=== PATIENT | female | born 1985 | race Caucasian/White ===

== ENCOUNTER 2018-12-21 17:17 | Emergency (ER) | payer BC, MEDICAID, OTHER ==
[~2018-12-21] VITALS: Ht 162.6 cm; Wt 79.2 kg
[2018-12-21 17:58] VITALS: BP 167/106
[2018-12-21] MEDS ORDERED: KETOROLAC 30 MG/1 ML ONE (18:44)
--- NOTE | 2018-12-21 18:51 | NUR ---
Discharge instructions discussed with patient including when to return to emergency department, patient verbalizes understanding. Air cast applied to left lower extremity. Patient ambulates to discharge desk in no acute distress.
[2018-12-21] MEDS ORDERED: KETOROLAC 30 MG/1 ML IM ONE (19:00)
== END 2018-12-21 19:01 | disposition home or self-care (01) ==
LOC: ED 18:44
DX: G89.11 Acute pain due to trauma (principal); M25.572 Pain in left ankle and joints of left foot
CPT/HCPCS: 29515; 73610; 73630; 96372; 99283; J1885

== ENCOUNTER 2020-11-04 14:28 | Emergency (ER) | payer SELFPAY ==
[~2020-11-04] VITALS: Ht 162.6 cm; Wt 72.6 kg
[2020-11-04] MEDS ORDERED: ONDANSETRON ODT 4 MG PO ONE (15:30)
[2020-11-04] MEDS ORDERED: KETOROLAC 30 MG/1 ML IM ONE (15:30)
[2020-11-04] MEDS ORDERED: KETOROLAC 30 MG/1 ML ONE (15:53)
[2020-11-04] MEDS ORDERED: ONDANSETRON ODT 4 MG ONE (15:53)
[2020-11-04 15:56] VITALS: BP 139/94
== END 2020-11-04 16:13 | disposition home or self-care (01) ==
LOC: ED 15:30
DX: J06.9 Acute upper respiratory infection, unspecified (principal); Z20.822 Contact with and (suspected) exposure to COVID-19; B34.9 Viral infection, unspecified; R50.9 Fever, unspecified; R05 Cough; R51.9 Headache, unspecified
CPT/HCPCS: 71045; 87635; 99284